=== PATIENT | male | born 1980 | race African-American/Black ===

== ENCOUNTER 2017-03-01 19:27 | Emergency (ER) | payer OTHER ==
[2017-03-01 20:45] VITALS: BP 128/86
--- NOTE | 2017-03-01 21:16 | PHYS DOC ---
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 He is complaining of a sore throat and a cough that he has had for the last 2 days. He denied any shortness of breath or difficulty breathing he denies any fevers chills or nausea vomiting. Patient states he takes TheraFlu [id number] today with minimal relief. Review of Systems Review of Systems Constitutional: Denies fever or chills [] Eyes: Denies change in visual acuity, redness, or eye pain [] HENT: nasal congestion and sore throat [] Respiratory: cough denies shortness of breath [] Cardiovascular: No additional information not addressed in HPI [] GI: Denies abdominal pain, nausea, vomiting, bloody stools or diarrhea [] : Denies dysuria or hematuria [] Musculoskeletal: Denies back pain or joint pain [] Integument: Denies rash or skin lesions [] Neurologic: Denies headache, focal weakness or sensory changes [] Endocrine: Denies polyuria or polydipsia [] Allergies Allergies Allergies Coded Allergies Type Severity Reaction Last Updated Verified No Known Drug Allergies 12/26/13 No Physical Exam Physical Exam Constitutional: Well developed, well nourished, no acute distress, non-toxic appearance. [] HENT: Normocephalic, atraumatic, bilateral external ears normal, oropharynx moist, no oral exudates, nose normal. Bilateral tympanic membranes appear to be normal. Throat with no erythematous slight redness noted no postnasal drip noted. Patient with bilateral frontal and maxillary sinus tenderness. Eyes: PERRLA, EOMI, conjunctiva normal, no discharge. [] Neck: Normal range of motion, no tenderness, supple, no stridor. [] Cardiovascular:Heart rate regular rhythm, no murmur [] Lungs & Thorax: Bilateral breath sounds clear to auscultation [] Skin: Warm, dry, no erythema, no rash. [] Back: No tenderness Extremities: No tenderness, no cyanosis, no clubbing, ROM intact, no edema. [] Neurologic: Alert and oriented X 3, normal motor function, normal sensory function, no focal deficits noted. [] Psychologic: Affect normal, judgement normal, mood normal. [] Current Patient Data Vital Signs Vital Signs Date Time Temp Pulse Resp B/P (MAP) Pulse Ox O2 Delivery O2 Flow Rate FiO2 03/01/17 20:45 98.9 64 18 97 Room Air 98.9 EKG EKG [] Radiology/Procedures Radiology/Procedures [] Course & Med Decision Making Course & Med Decision Making Pertinent Labs and Imaging studies reviewed. (See chart for details) Rapid strep was negative. Patient was instructed to use Sudafed over-the- counter to help with sinus pressure. He was also instructed to use Mucinex DM [id number] to help relieve the pressure and cause drainage as well as help with cough. Patient was encouraged to use Tylenol and ibuprofen for fever chills or generalized body aches and discomfort. Also recommended patient to drink plenty of fluids. Signs and symptoms to return back to emergency department as been provided. Patient agrees with discharge instructions treatment regimens and follow-up recommendations. [] Dragon Disclaimer Dragon Disclaimer This electronic medical record was generated, in whole or in part, using a voice recognition dictation system. Departure Departure Impression: Primary Impression: Viral sinusitis Disposition: HOME, SELF-CARE Condition: STABLE Referrals: NO PCP (PCP) Patient Instructions: Sinusitis, [id number] Additional Instructions: Activity as tolerated. Sudafed as instructed by engineering director. Mucinex DM as directed by engineering director as well. Tylenol or ibuprofen for fever chills or generalized body aches and discomfort. Drink plenty of fluids. Follow-up to primary care physician in the next 5-7 days. Return back to emergency prior signs symptoms of become worse. KADY LONG BLENDING OPERATOR March 01, 2017 21:16
[2017-03-02 08:14] LABS: NEGATIVE OBC STREP NEG; POSITIVE OBC STREP POS
== END 2017-03-01 21:20 | disposition home or self-care (01) ==
LOC: ER 19:27
DX: J32.1 Chronic frontal sinusitis (principal); J32.0 Chronic maxillary sinusitis; B97.89 Other viral agents as the cause of diseases classified elsewhere
CPT/HCPCS: 87070; 87880; 99283

== ENCOUNTER 2018-10-21 16:09 | Emergency (ER) | payer OTHER ==
[~2018-10-21] VITALS: Ht 177.8 cm; Wt 68.0 kg
[2018-10-21 17:11] VITALS: BP 117/65
[2018-10-21] MEDS ORDERED: CLIN150C14 PO (17:23)
--- NOTE | 2018-10-21 17:24 | PHYS DOC ---
Past Medical History Past Medical History: Seizure, Other Additional Past Medical Histor: BRAIN MENINGOMA Past Surgical History: No Surgical History Alcohol Use: Occasionally Drug Use: None Adult General Chief Complaint Chief Complaint: LACERATION/AVULSION HPI HPI Patient is a 37 year old AA male who presents to the emergency department with complaints of a cut to the right side of his tongue after he had a seizure 3 days ago. Patient states he has a seizure disorder and he takes Keppra. He denies any missing any doses of his Keppra. Patient denies any headache, numbness, tingling, weakness, fatigue, headache, or neck pain. Patient is here because the cut on the right side of his tongue hurts. He denies any fever or drainage from the site. States that there is a little tag of skin on the edge of his tongue that is bothering him. Review of Systems Review of Systems Constitutional: Denies fever or chills [] Eyes: Denies change in visual acuity, redness, or eye pain [] HENT: See history of present illness Musculoskeletal: Denies back pain or joint pain [] Integument: See history of present illness Neurologic: Denies headache, focal weakness or sensory changes [] Complete systems were reviewed and found to be within normal limits, except as documented in this note. Allergies Allergies Allergies Coded Allergies Type Severity Reaction Last Updated Verified No Known Drug Allergies 12/26/13 No Physical Exam Physical Exam Constitutional: Well developed, well nourished, no acute distress, non-toxic appearance. [] HENT: Normocephalic, atraumatic, bilateral external ears normal, oropharynx moist, no oral exudates, nose normal; there is no open laceration noted to patient's tongue. There is a small tag of tissue noted on the right lateral tongue no bleeding or drainage, mild erythema of the right tongue at the site of laceration[] Eyes: conjunctiva normal, no discharge. [] Neck: Normal range of motion, no tenderness, supple, no stridor. [] Skin: Warm, dry, no erythema, no rash. [] Neurologic: Alert and oriented X 3, normal motor function, normal sensory function, no focal deficits noted. [] Psychologic: Affect normal, judgement normal, mood normal. [] Current Patient Data Vital Signs Vital Signs Date Time Temp Pulse Resp B/P (MAP) Pulse Ox O2 Delivery O2 Flow Rate FiO2 12/30/18 17:11 98.1 55 16 117/65 (82) 98 Room Air 98.1 EKG EKG [] Radiology/Procedures Radiology/Procedures [] Course & Med Decision Making Course & Med Decision Making Pertinent Labs and Imaging studies reviewed. (See chart for details) [] Dragon Disclaimer Dragon Disclaimer This electronic medical record was generated, in whole or in part, using a voice recognition dictation system. Departure Departure Impression: Primary Impression: Laceration of tongue without complication Disposition: HOME, SELF-CARE Condition: STABLE Referrals: NO PCP (PCP) Patient Instructions: Tongue Laceration, [id number] Additional Instructions: Fill prescription and use as directed. Encourage Patient to drink bland fluids avoiding carbonation and alcohol and to eat a soft bland diet avoiding spicy foods or foods with high acid content for the next few days. May take tylenol or ibuprofen as needed for pain. Follow up with your primary care doctor if symptoms persist, return to the ER if symptoms worsen. Scripts Clindamycin Hcl (CLINDAMYCIN HCL) 150 Mg Capsule 450 MG PO TID for 7 Days, #63 CAP 0 Refills Prov: CRISTÓBAL REMY APRN 10/21/18 Problem Qualifiers Primary Impression: Laceration of tongue without complication Encounter type: initial encounter Qualified Codes: S01.512A - Laceration without foreign body of oral cavity, initial encounter CRISTÓBAL REMY APRN Oct 21, 2018 17:24
== END 2018-10-21 17:33 | disposition home or self-care (01) ==
LOC: ER 16:09
DX: S01.512A Laceration without foreign body of oral cavity, initial encounter (principal); R56.9 Unspecified convulsions; X58.XXXA Exposure to other specified factors, initial encounter; Y93.89 Activity, other specified; Y99.8 Other external cause status; Y92.89 Other specified places as the place of occurrence of the external cause
CPT/HCPCS: 99283